=== PATIENT | male | born 1985 | race Caucasian/White ===

== ENCOUNTER 2018-02-26 16:20 | Emergency (ER) | payer OTHER ==
[~2018-02-26] VITALS: Ht 190.5 cm; Wt 122.7 kg
[~2018-02-26 16:20] MED LIST: ABILIFY10 MG PO; ABILIFY15 MG PO; ABILIFY20 MG PO; ABILIFY30 MG PO; ABILIFY5 MG PO; ACID CONTROL150 MG PO; ATARAX,VISTARIL50 MG PO; CELEXA20 MG PO; CLONAZEPAM0.5 MG PO; CLONAZEPAM1 MG PO; ESCITALOPRAM OX10 MG PO; HALDOL0.5 MG PO; HYDROXYZINE HCL50 MG PO; IBUPROFEN800 MG PO; LEXAPRO10 MG PO; MEDROL DOSEPAK4 MG PO; METFORMIN HCL500 MG PO; MOTRIN800 MG PO; OMEPRAZOLE40 M1 PO; OXCARBAZEPINE300 MG PO; OXCARBAZEPINE600 MG PO; PRAVACHOL20 MG PO; PRILOSEC40 MG PO; RANITIDINE HCL150 M1 PO; TRAZODONE HCL50 MG PO; TRILEPTAL600 MG PO; ZANTAC150 MG PO; ZESTORETIC 20-1 EAC1 PO; ZESTRIL20 MG PO; [UNRECOGNIZED DRUG - REMARK]
[2018-02-26 17:37] LABS: APPEARANCE CLEAR ((CLEAR)); BILIRUBIN NEGATIVE; BLOOD NEGATIVE; COLOR YELLOW ((YELLOW)); GLUCOSE (STRIP) NEGATIVE; KETONES NEGATIVE; LEUKOCYTES TRACE; NITRITE NEGATIVE; PROTEIN (STRIP) 30; SPECIFIC GRAVITY 1.024 (1.000-1.030)
[2018-02-26 17:38] LABS: HEMATOCRIT 43.7 % (38.0-50.0); HEMOGLOBIN 15.3 G/DL (12.5-16.6); MCV 88.5 FL (86-99); PLATELET COUNT 221 K/uL (156-360); RBC DIS.WIDTH-CV 12.3 % (11.8-14.6); RBC DIS.WIDTH-SD 40.1 % (39-53); RED BLOOD COUNT 4.94 M/uL (4.00-5.50); WHITE BLOOD COUNT 11.1 K/uL (4.1-10.2)
[2018-02-26 17:46] LABS: BACTERIA RARE /HPF; EPITHELIAL CELLS RARE /HPF; MUCUS TRACE /LPF; UCUL ADDED? NO; WHITE BLOOD CELLS 0-5 /HPF (0-5)
[2018-02-26 17:51] LABS: ALBUMIN 4.6 g/dL (3.2-4.8); CHLORIDE 104 mEq/L (99-109); POTASSIUM 3.4 mEq/L (3.7-5.4); SODIUM 140 mEq/L (136-147)
[2018-02-26 17:53] LABS: GLUCOSE 177 mg/dL (70-99); TOTAL PROTEIN 7.4 g/dL (6.4-8.3)
[2018-02-26 17:55] LABS: TOTAL BILIRUBIN 0.7 mg/dL (0.0-1.0)
[2018-02-26 17:57] LABS: ALKALINE PHOSPHATASE 49 IU/L (3-129); GFR ESTIMATE (CALCULATED) > 59 mL/min/ (58.99-99999)
[2018-02-26 17:58] LABS: UREA NITROGEN (BUN) 13 mg/dL (9-23)
[2018-02-26 17:59] LABS: AST (GOT) 36 IU/L (2-34)
[2018-02-26 18:00] LABS: ALT (GPT) 72 IU/L (3-49)
[2018-02-26] MEDS ORDERED: KEFLEX500 MG PO (19:58)
[2018-02-26] MEDS ORDERED: FLOMAX0.4 MG PO (19:58)
[2018-02-26] MEDS ORDERED: NAPROSYN500 MG PO (19:58)
[2018-02-26 20:28] VITALS: BP 120/68
== END 2018-02-26 20:29 | disposition home or self-care (01) ==
LOC: EME 16:20
DX: N20.0 Calculus of kidney (principal); N39.0 Urinary tract infection, site not specified; K76.0 Fatty (change of) liver, not elsewhere classified; K21.9 Gastro-esophageal reflux disease without esophagitis; R56.9 Unspecified convulsions; F95.2 Tourette's disorder; F42.9 Obsessive-compulsive disorder, unspecified; F41.9 Anxiety disorder, unspecified; F31.9 Bipolar disorder, unspecified; F32.9 Major depressive disorder, single episode, unspecified; Z87.891 Personal history of nicotine dependence
CPT/HCPCS: 74018; 76770; 80053; 81003; 85027; 99281; 99284